=== PATIENT | female | born 1995 | race Caucasian/White ===

== ENCOUNTER 2017-12-15 13:06 | Outpatient (CLI) | payer BC ==
--- NOTE | 2017-12-15 14:54 | RAD ---
CHEST 2 VIEWS: Date: 12/15/17 HISTORY: Dyspnea. COMPARISON: None. FINDINGS: Lungs are clear. No pneumothorax or effusion. Cardiac silhouette and mediastinal contour within brian l limits. Mild dextroscoliosis. IMPRESSION: No acute intrathoracic abnormality. POS: [facility]
== END 2017-12-15 13:07 | disposition home or self-care (01) ==
LOC: RAD 13:06
PROVIDERS: ATTEND Internal Medicine Critical Care Medicine
DX: R06.00 Dyspnea, unspecified (principal); R76.11 Nonspecific reaction to tuberculin skin test without active tuberculosis; A15.0 Tuberculosis of lung
CPT/HCPCS: 36415; 71046; 86480